=== PATIENT | female | born 2000 | race Caucasian/White ===

== ENCOUNTER 2022-05-25 05:55 | Emergency (ER) | payer BC ==
[~2022-05-25] VITALS: Ht 165.1 cm; Wt 103.6 kg
[2022-05-25] MEDS ORDERED: WELLTAB40 PO (06:04)
[2022-05-25] MEDS ORDERED: WELLTAB38 PO (06:04)
[2022-05-25] MEDS ORDERED: SPRI28TA PO (06:04)
[2022-05-25] MEDS ORDERED: ONDANSETRON 4MG ORAL DISINTEGRATING TAB PO ONE (07:10)
[2022-05-25] MEDS ORDERED: METOCLOPRAMIDE 10MG TAB PO ONE (08:40)
[2022-05-25] MEDS ORDERED: ACETAMINOPHEN 500 MG TAB PO ONE (09:05)
[2022-05-25 09:07] VITALS: BP 129/68
== END 2022-05-25 10:15 | disposition home or self-care (01) ==
LOC: M ED 05:55
DX: R11.2 Nausea with vomiting, unspecified (principal); Z88.8 Allergy status to other drugs, medicaments and biological substances

== ENCOUNTER 2024-02-14 10:52 | Emergency (ER) | payer BC, OTHER ==
[~2024-02-14] VITALS: Ht 165.1 cm; Wt 110.0 kg
[~2024-02-14 10:52] MED LIST: SPRI28TA PO; WELLTAB38 PO; WELLTAB40 PO
[2024-02-14] MEDS ORDERED: TERC0.4C10 (11:00)
[2024-02-14] MEDS ORDERED: ALBU8.5H (11:01)
[2024-02-14 11:47] LABS: BASO % 0.3 % (0.0-1.0); EOS # 0.1 10^3/uL (0.0-0.5); EOS % 1.7 % (0.0-3.0); HEMATOCRIT 36.3 % (36.0-47.0); HEMOGLOBIN 11.8 g/dl (12.0-15.5); LYMPH # 2.6 10^3/uL (1.5-5.0); MEAN CORPUSCULAR HEMOGLOBIN 27.1 pg (27.0-33.0); MEAN CORPUSCULAR HGB CONC 32.5 g/dl (32.0-36.5); MEAN CORPUSCULAR VOLUME 83.3 fl (80.0-96.0); MONO # 0.3 10^3/uL (0.0-0.8); MONO % 4.1 % (2.0-8.0); NEUTROPHILS % 56.6 % (36.0-66.0); PLATELET COUNT, AUTOMATED 247 10^3/uL (150-450); RED BLOOD COUNT 4.36 10^6/uL (4.00-5.40); WHITE BLOOD COUNT 7.1 10^3/uL (4.0-10.0)
[2024-02-14 11:59] LABS: BLOOD UREA NITROGEN 9 MG/DL (9-23); CALCIUM LEVEL 9.8 MG/DL (8.5-10.1); CARBON DIOXIDE LEVEL 23 MMOL/L (20-31); CHLORIDE LEVEL 109 MMOL/L (98-107); GLOMERULAR FILTRATION RATE > 60.0 (>60); GLUCOSE, FASTING 85 MG/DL (60-100); POTASSIUM SERUM 3.9 MMOL/L (3.5-5.1); SODIUM LEVEL 139 MMOL/L (136-145)
[2024-02-14 12:17] LABS: HCG, SERUM QUANTITATIVE 26620.7 MIU/ML (<4.2)
[2024-02-14 14:01] LABS: Trichomonas vaginalis (AMP) NOT DETECTED (NEGATIVE)
[2024-02-14 14:24] LABS: GC DNA AMPLIFICATION NEGATIVE (NEGATIVE)
[2024-02-14 14:37] VITALS: BP 152/76; TEMP 97.5; O2SAT 99
== END 2024-02-14 15:51 | disposition home or self-care (01) ==
LOC: M ED 10:52
DX: O26.851 Spotting complicating pregnancy, first trimester (principal); Z3A.01 Less than 8 weeks gestation of pregnancy; O99.341 Other mental disorders complicating pregnancy, first trimester; O99.511 Diseases of the respiratory system complicating pregnancy, first trimester; O34.81 Maternal care for other abnormalities of pelvic organs, first trimester; N83.291 Other ovarian cyst, right side; Z79.899 Other long term (current) drug therapy

== ENCOUNTER → 2024-04-02 | Outpatient (REF) | payer OTHER ==
[~2024-04-02] MED LIST changes: +ALBU8.5H; +TERC0.4C10
== END ==
LOC: M PLALAB 14:33
PROVIDERS: ATTEND Advanced Practice Midwife
DX: Z34.81 Encounter for supervision of other normal pregnancy, first trimester (principal); Z53.9 Procedure and treatment not carried out, unspecified reason

== ENCOUNTER → 2024-04-02 | Outpatient (CLI) | payer OTHER ==
[2024-04-02 17:44] LABS: HEMATOCRIT 34.6 % (36.0-47.0); HEMOGLOBIN 11.4 g/dl (12.0-15.5); MEAN CORPUSCULAR HEMOGLOBIN 27.7 pg (27.0-33.0); MEAN CORPUSCULAR HGB CONC 32.9 g/dl (32.0-36.5); MEAN CORPUSCULAR VOLUME 84.2 fl (80.0-96.0); PLATELET COUNT, AUTOMATED 239 10^3/uL (150-450); RED BLOOD COUNT 4.11 10^6/uL (4.00-5.40)
[2024-04-02 18:50] LABS: HIV 1&2 SCREEN NEGATIVE (NEGATIVE)
[2024-04-02 18:58] LABS: HEPATITIS C VIRUS ABY INDEX 0.05 INDEX (<0.8)
[2024-04-02 21:40] LABS: GC DNA AMPLIFICATION NEGATIVE (NEGATIVE)
== END ==
LOC: M PLALAB 14:55
PROVIDERS: ATTEND Advanced Practice Midwife
DX: Z34.81 Encounter for supervision of other normal pregnancy, first trimester (principal)

== ENCOUNTER → 2024-04-30 | Outpatient (REF) | payer OTHER | LOC: M PLALAB 13:25 | PROVIDERS: ATTEND Nurse Practitioner Family | DX: Z34.82 Encounter for supervision of other normal pregnancy, second trimester (principal) ==

== ENCOUNTER → 2024-05-23 | Outpatient (CLI) | payer OTHER | LOC: M RAD 07:52 | PROVIDERS: ATTEND Nurse Practitioner Family | DX: O32.1XX0 Maternal care for breech presentation, not applicable or unspecified (principal); Z3A.20 20 weeks gestation of pregnancy ==

== ENCOUNTER → 2024-06-10 | Outpatient (CLI) | payer OTHER | LOC: M WHC 06:56 | PROVIDERS: ATTEND Nurse Practitioner Family | DX: O09.292 Supervision of pregnancy with other poor reproductive or obstetric history, second trimester (principal) ==

== ENCOUNTER → 2024-07-11 | Outpatient (CLI) | payer OTHER ==
[2024-07-11 17:25] LABS: HEMATOCRIT 35.1 % (36.0-47.0); HEMOGLOBIN 11.5 g/dl (12.0-15.5); MEAN CORPUSCULAR HEMOGLOBIN 28.9 pg (27.0-33.0); MEAN CORPUSCULAR HGB CONC 32.8 g/dl (32.0-36.5); MEAN CORPUSCULAR VOLUME 88.2 fl (80.0-96.0); PLATELET COUNT, AUTOMATED 248 10^3/uL (150-450); RED BLOOD COUNT 3.98 10^6/uL (4.00-5.40); WHITE BLOOD COUNT 12.4 10^3/uL (4.0-10.0)
[2024-07-11 20:13] LABS: GC DNA AMPLIFICATION NEGATIVE (NEGATIVE)
[2024-07-11 21:53] LABS: GLUCOSE CHALLENGE TEST 1 HOUR 142 MG/DL (LESS THAN 140)
[2024-07-11 22:28] LABS: HIV 1&2 SCREEN NEGATIVE (NEGATIVE)
[2024-07-11 22:36] LABS: HEPATITIS C VIRUS ABY INDEX < 0.02 INDEX (<0.8)
== END ==
LOC: M PLALAB 10:39
PROVIDERS: ATTEND Nurse Practitioner Family
DX: Z34.80 Encounter for supervision of other normal pregnancy, unspecified trimester (principal)

== ENCOUNTER → 2024-07-15 | Outpatient (CLI) | payer OTHER | LOC: M LAB 07:42 | PROVIDERS: ATTEND Nurse Practitioner Family | DX: R73.09 Other abnormal glucose (principal) ==

== ENCOUNTER → 2024-08-01 | Outpatient (CLI) | payer OTHER | LOC: M WHC 07:07 | PROVIDERS: ATTEND Nurse Practitioner Family | DX: O24.419 Gestational diabetes mellitus in pregnancy, unspecified control (principal); Z3A.30 30 weeks gestation of pregnancy ==

== ENCOUNTER 2024-08-16 10:57 | Emergency (ER) | payer OTHER ==
[~2024-08-16] VITALS: Ht 165.1 cm; Wt 109.0 kg
[2024-08-16 13:36] VITALS: TEMP 96.8
[2024-08-16 14:58] VITALS: BP 124/73; O2SAT 97
== END 2024-08-16 14:59 | disposition home or self-care (01) ==
LOC: M ED 10:57
DX: O9A.219 Injury, poisoning and certain other consequences of external causes complicating pregnancy, unspecified trimester (principal); S13.4XXA Sprain of ligaments of cervical spine, initial encounter; V43.62XA Car passenger injured in collision with other type car in traffic accident, initial encounter; Y92.9 Unspecified place or not applicable; Y93.9 Activity, unspecified; Y99.9 Unspecified external cause status; O24.419 Gestational diabetes mellitus in pregnancy, unspecified control; O99.519 Diseases of the respiratory system complicating pregnancy, unspecified trimester; J45.909 Unspecified asthma, uncomplicated; O99.340 Other mental disorders complicating pregnancy, unspecified trimester; F43.10 Post-traumatic stress disorder, unspecified

== ENCOUNTER → 2024-08-29 | Outpatient (CLI) | payer OTHER | LOC: M WHC 11:43 | PROVIDERS: ATTEND Nurse Practitioner Family | DX: O24.419 Gestational diabetes mellitus in pregnancy, unspecified control (principal); Z3A.33 33 weeks gestation of pregnancy ==

== ENCOUNTER → 2024-09-18 | Outpatient (REF) | payer OTHER ==
[2024-09-18 17:33] LABS: TOTAL PROTEIN,RANDOM URINE 30.9 MG/DL (0.0-14.0)
[2024-09-18 17:38] LABS: CREATININE,RANDOM URINE 162.6 MG/DL
[2024-09-18 17:53] LABS: HEMATOCRIT 36.8 % (36.0-47.0); MEAN CORPUSCULAR HGB CONC 32.6 g/dl (32.0-36.5); PLATELET COUNT, AUTOMATED 229 10^3/uL (150-450); RED BLOOD COUNT 4.28 10^6/uL (4.00-5.40); WHITE BLOOD COUNT 11.6 10^3/uL (4.0-10.0)
[2024-09-18 18:14] LABS: URIC ACID 4.2 MG/DL (3.1-7.8)
[2024-09-18 18:17] LABS: LDH LACTATE DEHYDROGENASE 150 U/L (120-246)
[2024-09-18 18:18] LABS: ALT/SGPT < 9 U/L (7.0-40); AST/SGOT < 8 U/L (<34); BILIRUBIN,TOTAL 0.4 MG/DL (0.3-1.2); CREATININE FOR GFR 0.67 MG/DL (0.55-1.30); GLOMERULAR FILTRATION RATE > 90.0 (>60)
== END ==
LOC: M PLALAB 15:12
PROVIDERS: ATTEND Nurse Practitioner Family
DX: O16.3 Unspecified maternal hypertension, third trimester (principal); Z3A.36 36 weeks gestation of pregnancy

== ENCOUNTER → 2024-12-23 | Outpatient (REF) | payer OTHER ==
[~2024-12-23] MED LIST changes: +ACET-683 PO; +ACET-897 PO; +HYDR-4571 PO; +IBUP80TA PO; +PRENTAB9 PO; +SENN18TA PO; +SYMB80INH INH; +TUMS500C PO
[2024-12-23 14:39] LABS: Trichomonas vaginalis (AMP) NOT DETECTED (NEGATIVE)
[2024-12-23 15:02] LABS: GC DNA AMPLIFICATION NEGATIVE (NEGATIVE)
== END ==
LOC: M SFHCWAGY 13:06
PROVIDERS: ATTEND Nurse Practitioner Family
DX: N73.9 Female pelvic inflammatory disease, unspecified (principal)

== ENCOUNTER 2025-01-14 12:18 | Day surgery (SDC) | payer OTHER ==
[~2025-01-14] VITALS: Ht 165.1 cm; Wt 110.3 kg
[~2025-01-14 12:18] MED LIST changes: -ACET-897 PO; -HYDR-4571 PO; -SENN18TA PO
[2025-01-14] MEDS ORDERED: ONDANSETRON 4MG 2ML VIAL As Ordered ONE (12:23)
[2025-01-14] MEDS ORDERED: dexAMETHasone 4 MG/ML 1 ML VIAL As Ordered ONE (12:23)
[2025-01-14] MEDS ORDERED: KETOROLAC 30 MG/ML 1 ML VIAL As Ordered ONE (12:23)
[2025-01-14] MEDS ORDERED: MIDAZOLAM INJ 2 MG/2 ML VIAL As Ordered ONE (12:23)
[2025-01-14] MEDS ORDERED: ROCURONIUM BROMIDE 50MG/5ML VIAL As Ordered ONE (12:24)
[2025-01-14] MEDS ORDERED: SUGAMMADEX SODIUM 500 MG/5 ML VIAL As Ordered ONE (12:24)
[2025-01-14] MEDS ORDERED: LIDOCAINE 2% 100 MG/5 ML SDV (FOR ANES.) As Ordered ONE (12:24)
[2025-01-14] MEDS ORDERED: ACETAMINOPHEN 1000MG/100ML IV BAG As Ordered ONE (12:25)
[2025-01-14] MEDS ORDERED: LR 1,000 ML IV SCH (12:30)
[2025-01-14] MEDS: INDOCYANINE GREEN 25 MG VIAL As Ordered ONE (13:10)
[2025-01-14] MEDS: SCOPOLAMINE 1MG TRANSDERMAL PATCH TOP ONE (13:12)
[2025-01-14] MEDS ORDERED: HEPARIN SOD 5000 UNITS/ML 1 ML VIAL/SYRINGE SQ ONE (13:15)
[2025-01-14] MEDS ORDERED: INDOCYANINE GREEN 25 MG VIAL IV ONE (13:15)
[2025-01-14] MEDS: ceFAZolin SOD 2 GM IV ONCE IV ONE (13:30)
[2025-01-14] MEDS: HEPARIN SOD 5000 UNITS/ML 1 ML VIAL/SYRINGE As Ordered ONE (13:34)
[2025-01-14] MEDS: ONDANSETRON 4MG 2ML VIAL IV PRN (14:50)
[2025-01-14] MEDS: MORPHINE 2 MG/ML 1 ML VIAL IV PRN (14:50)
[2025-01-14 16:30] VITALS: BP 136/74; TEMP 97.3; O2SAT 96
== END 2025-01-14 16:33 | disposition home or self-care (01) ==
LOC: M SDC 12:18
PROVIDERS: ATTEND Surgery
DX: K80.10 Calculus of gallbladder with chronic cholecystitis without obstruction (principal); J45.909 Unspecified asthma, uncomplicated; Z88.8 Allergy status to other drugs, medicaments and biological substances
CPT/HCPCS: 47562; 81025; 88304; J0131; J0665; J0690; J1100; J1885; J2250; J2405; J2765; J3010; Q9968; S2900

== ENCOUNTER 2025-01-19 00:57 | Inpatient (IN) | payer OTHER ==
[~2025-01-19] VITALS: Ht 165.1 cm; Wt 111.7 kg
[2025-01-19 06:09] LABS: BASO # 0.0 10^3/uL (0.0-0.2); BASO % 0.1 % (0.0-1.0); EOS # 0.0 10^3/uL (0.0-0.5); EOS % 0.3 % (0.0-3.0); LYMPH # 1.8 10^3/uL (1.5-5.0); LYMPH % 19.4 % (24.0-44.0); MONO # 0.4 10^3/uL (0.0-0.8); MONO % 4.6 % (2.0-8.0); NEUTROPHILS # 7.1 10^3/uL (1.5-8.5); NEUTROPHILS % 75.4 % (36.0-66.0); PLATELET COUNT, AUTOMATED 298 10^3/uL (150-450)
[2025-01-19 06:40] LABS: ALT/SGPT 168 U/L (7.0-40); AST/SGOT 288 U/L (<34); CALCIUM LEVEL 9.3 MG/DL (8.5-10.1); CARBON DIOXIDE LEVEL 24 MMOL/L (20-31); CHLORIDE LEVEL 107 MMOL/L (98-107); CREATININE FOR GFR 0.72 MG/DL (0.55-1.30); GLOMERULAR FILTRATION RATE > 90.0 (>60); POTASSIUM SERUM 4.4 MMOL/L (3.5-5.1); SODIUM LEVEL 143 MMOL/L (136-145)
[2025-01-19] MEDS: KETOROLAC 30 MG/ML 1 ML VIAL IV ONE (06:57)
[2025-01-19] MEDS: ONDANSETRON 4MG 2ML VIAL IV ONE (06:57)
[2025-01-19 07:04] LABS: HCG, SERUM QUALITATIVE NEGATIVE (NEGATIVE)
[2025-01-19] MEDS ORDERED: ACET-897 PO (10:27)
[2025-01-19] MEDS ORDERED: HYDR-4571 PO (10:27)
[2025-01-19] MEDS ORDERED: HOME MED LIST COMPLETE! XX SCH (10:30)
[2025-01-19 12:19] LABS: ALT/SGPT 220.0 U/L (7.0-40); AST/SGOT 294.0 U/L (<34)
[2025-01-19] MEDS: LR 1,000 ML IV ONE ×2 (15:05→16:05)
[2025-01-19] MEDS ORDERED: NALOXONE INJ 0.4 MG/1 ML VIAL IV PRN (15:05)
[2025-01-19] MEDS ORDERED: PROMETHAZINE 25MG/ML 1ML VIAL IV PRN (15:05)
[2025-01-19] MEDS ORDERED: MORPHINE 4 MG/ML 1 ML VIAL IV PRN (15:05)
[2025-01-19] MEDS ORDERED: MORPHINE 2 MG/ML 1 ML VIAL IV PRN (15:05)
[2025-01-19] MEDS: KETOROLAC 30 MG/ML 1 ML VIAL IV SCH (16:04)
[2025-01-19] MEDS: NS (Normal Saline) 0.9% 1,000 ML IV ONE (19:41)
[2025-01-19 21:48] VITALS: BP 115/55; TEMP 97.8; O2SAT 99
[2025-01-19] MEDS: NS 0.45% 1,000 ML IV SCH (22:52)
[2025-01-19 23:18] LABS: KETONE, URINE AUTO RFX NEGATIVE (NEGATIVE); LEUKOCYTE ESTERASE UR AUTO RFX NEGATIVE (NEGATIVE); NITRITE, URINE AUTO RFX NEGATIVE (NEGATIVE); RBC, URINE AUTO RFX 1 /HPF (0-3); SQUAM EPITHELIAL CELL UR AURFX 0 /HPF (0-6); WBC, URINE AUTO RFX 1 /HPF (0-3)
[2025-01-20] VITALS: BP 130/74; TEMP 98.2; O2SAT 97
[2025-01-20 04:00] VITALS: BP 115/55; TEMP 97.4; O2SAT 96
[2025-01-20 07:24] LABS: BASO # 0.0 10^3/uL (0.0-0.2); BASO % 0.2 % (0.0-1.0); EOS # 0.2 10^3/uL (0.0-0.5); EOS % 1.9 % (0.0-3.0); LYMPH # 2.7 10^3/uL (1.5-5.0); LYMPH % 29.9 % (24.0-44.0); MONO # 0.4 10^3/uL (0.0-0.8); MONO % 4.0 % (2.0-8.0); NEUTROPHILS # 5.8 10^3/uL (1.5-8.5); NEUTROPHILS % 63.7 % (36.0-66.0); PLATELET COUNT, AUTOMATED 278 10^3/uL (150-450)
[2025-01-20] MEDS: MORPHINE 2 MG/ML 1 ML VIAL IV ONE (07:56)
[2025-01-20] MEDS: NS (Normal Saline) 0.9% 1,000 ML IV ONE (08:04)
[2025-01-20 08:09] LABS: MONO SCRN NEGATIVE (NEGATIVE)
[2025-01-20 08:17] VITALS: BP 107/57; TEMP 98; O2SAT 98
[2025-01-20 08:17] LABS: HEPATITIS C VIRUS ABY INDEX < 0.02 INDEX (<0.8)
[2025-01-20 08:18] LABS: ALT/SGPT 182 U/L (7.0-40); AST/SGOT 107 U/L (<34); CALCIUM LEVEL 8.3 MG/DL (8.5-10.1); CARBON DIOXIDE LEVEL 24 MMOL/L (20-31); CHLORIDE LEVEL 109 MMOL/L (98-107); CHOLESTEROL LEVEL 163 MG/DL (<200); CHOLESTEROL RISK RATIO 3.73 (<5); CREATININE FOR GFR 0.77 MG/DL (0.55-1.30); GLOMERULAR FILTRATION RATE > 90.0 (>60); LDL CHOLESTEROL 103.0 MG/DL (<100); MAGNESIUM LEVEL 2.0 MG/DL (1.8-2.4); NON-HDL-C 119.4 MG/DL; POTASSIUM SERUM 4.1 MMOL/L (3.5-5.1); SODIUM LEVEL 141 MMOL/L (136-145); TRIGLYCERIDES LEVEL 82 MG/DL (<150)
[2025-01-20] MEDS: D5W/0.45% SODIUM CHLORIDE 1,000 ML IV SCH (09:22)
[2025-01-20 12:00] VITALS: BP 102/55; TEMP 98.3; O2SAT 95
[2025-01-20 16:00] VITALS: BP 107/55; TEMP 97.5; O2SAT 99
[2025-01-21] VITALS: BP 120/57; TEMP 97.4; O2SAT 97
[2025-01-21 08:00] VITALS: BP 112/56; TEMP 97.9; O2SAT 98
[2025-01-21 08:40] LABS: BASO # 0.0 10^3/uL (0.0-0.2); BASO % 0.4 % (0.0-1.0); EOS # 0.1 10^3/uL (0.0-0.5); EOS % 1.6 % (0.0-3.0); LYMPH # 2.6 10^3/uL (1.5-5.0); LYMPH % 32.4 % (24.0-44.0); MONO # 0.4 10^3/uL (0.0-0.8); MONO % 4.6 % (2.0-8.0); NEUTROPHILS # 4.9 10^3/uL (1.5-8.5); NEUTROPHILS % 60.8 % (36.0-66.0); PLATELET COUNT, AUTOMATED 283 10^3/uL (150-450)
[2025-01-21 09:13] LABS: ALT/SGPT 113 U/L (7.0-40); AST/SGOT 28 U/L (<34); CALCIUM LEVEL 8.7 MG/DL (8.5-10.1); CARBON DIOXIDE LEVEL 23 MMOL/L (20-31); CHLORIDE LEVEL 108 MMOL/L (98-107); CREATININE FOR GFR 0.73 MG/DL (0.55-1.30); GLOMERULAR FILTRATION RATE > 90.0 (>60); MAGNESIUM LEVEL 2.0 MG/DL (1.8-2.4); POTASSIUM SERUM 4.1 MMOL/L (3.5-5.1); SODIUM LEVEL 142 MMOL/L (136-145)
[2025-01-21] MEDS: D5W/0.45% SODIUM CHLORIDE 1,000 ML IV SCH (09:27)
[2025-01-21 12:00] VITALS: BP 112/62; TEMP 98.1; O2SAT 98
[2025-01-21] MEDS: SENNA 8.6 MG TAB PO SCH (15:00)
[2025-01-21 16:00] VITALS: BP 112/56; TEMP 98.5; O2SAT 96
[2025-01-21] MEDS: BISACODYL 10 MG SUPP PR PRN (17:15)
[2025-01-21] MEDS ORDERED: IBUPROFEN 400 MG TAB PO PRN (20:35)
[2025-01-21] MEDS ORDERED: KETOROLAC 30 MG/ML 1 ML VIAL IM PRN (20:35)
[2025-01-22] VITALS: BP 112/67; TEMP 97.5; O2SAT 100
[2025-01-22 07:57] LABS: BASO # 0.0 10^3/uL (0.0-0.2); BASO % 0.2 % (0.0-1.0); EOS # 0.1 10^3/uL (0.0-0.5); EOS % 1.1 % (0.0-3.0); LYMPH # 2.8 10^3/uL (1.5-5.0); LYMPH % 32.4 % (24.0-44.0); MONO # 0.4 10^3/uL (0.0-0.8); MONO % 4.4 % (2.0-8.0); NEUTROPHILS # 5.4 10^3/uL (1.5-8.5); NEUTROPHILS % 61.7 % (36.0-66.0); PLATELET COUNT, AUTOMATED 256 10^3/uL (150-450)
[2025-01-22 08:00] VITALS: BP 112/56; TEMP 97.6; O2SAT 97
[2025-01-22 08:14] LABS: ALT/SGPT 70 U/L (7.0-40); AST/SGOT 13 U/L (<34); CALCIUM LEVEL 9.0 MG/DL (8.5-10.1); CARBON DIOXIDE LEVEL 24 MMOL/L (20-31); CHLORIDE LEVEL 110 MMOL/L (98-107); CREATININE FOR GFR 0.78 MG/DL (0.55-1.30); GLOMERULAR FILTRATION RATE > 90.0 (>60); MAGNESIUM LEVEL 1.9 MG/DL (1.8-2.4); POTASSIUM SERUM 4.1 MMOL/L (3.5-5.1); SODIUM LEVEL 145 MMOL/L (136-145)
[2025-01-22] MEDS ORDERED: SENN18TA PO (08:30)
[2025-01-24 01:58] LABS: ANTI-SMOOTH MUSCLE ANTIBODY < 20 U (<20); LIVER-KIDNEY MICROSOMAL ABY <= 20.0 U (<=20.0)
== END 2025-01-22 10:22 | disposition home or self-care (01) | DRG 948 ==
LOC: M ED 00:57 → M ED INP 14:33 → M PED 21:47
PROVIDERS: ADMIT General Practice; ATTEND Student in an Organized Health Care Education/Training Program
DX: G89.18 Other acute postprocedural pain (principal); Z68.41 Body mass index [BMI] 40.0-44.9, adult; K59.00 Constipation, unspecified; E66.01 Morbid (severe) obesity due to excess calories; R74.01 Elevation of levels of liver transaminase levels; R16.1 Splenomegaly, not elsewhere classified; Z22.2 Carrier of diphtheria; K76.0 Fatty (change of) liver, not elsewhere classified; R10.13 Epigastric pain